=== PATIENT | female | born 1985 | race African-American/Black ===

== ENCOUNTER 2024-12-04 21:43 | Inpatient (IN) | payer MEDICAID ==
[~2024-12-04] VITALS: Ht 175.3 cm; Wt 149.7 kg
[~2024-12-04 21:43] MED LIST: CLON0.2T
[2024-12-04] MEDS ORDERED: IPRATROPIUM BROMIDE (0.02%) 0.5MG/2.5ML NEB HHN STA (22:07)
[2024-12-04] MEDS ORDERED: ALBUTEROL (0.083%) 2.5MG/3ML NEB HHN STA (22:07)
[2024-12-04] MEDS: FUROSEMIDE 40MG/4ML VIAL IV ONE (22:15)
[2024-12-04] MEDS: HYDRALAZINE 20MG/ML VIAL IV ONE (22:15)
[2024-12-04 23:46] LABS: BASOPHILS % 0.5 % (0.0-2.0); DIFFERENTIAL COMMENT 0; EOSINOPHILS % 4.6 % (0.0-5.0); HEMOGLOBIN. 7.9 g/dL (12.0-16.0); LYMPHOCYTES % 18.9 % (20.0-50.0); MEAN CORPUSCULAR HEMOGLOBIN 21.5 pg (28.0-32.0); MEAN CORPUSCULAR HGB CONC 30.4 g/dL (31.0-37.0); MEAN CORPUSCULAR VOLUME 70.8 fL (81.0-99.0); MEAN PLATELET VOLUME 8.4 fl (7.4-10.4); MONOCYTES % 7.4 % (2.0-8.0); NEUTROPHILS % 68.6 % (40.0-76.0); PLATELET 308 x1000/uL (130-400); RED BLOOD CELL COUNT 3.67 mill/uL (4.2-5.4); RED CELL DISTRIBUTION WIDTH 18.9 % (11.6-14.6); WHITE BLOOD COUNT 7.8 x1000/uL (4.5-11.0)
[2024-12-05 00:01] LABS: CHLORIDE 110 mEq/L (98-107); POTASSIUM 4.7 mEq/L (3.5-5.1); SODIUM 138 mEq/L (136-145)
[2024-12-05 00:02] LABS: CARBON DIOXIDE 20 mEq/L (21-32)
[2024-12-05 00:03] VITALS: PULSE 84; RESP 20; O2SAT 100
[2024-12-05 00:03] LABS: CALCIUM 8.9 mg/dL (8.7-10.4)
[2024-12-05] MEDS: IPRATROPIUM BROMIDE (0.02%) 0.5MG/2.5ML NEB HHN NR (00:03)
[2024-12-05] MEDS: ALBUTEROL (0.083%) 2.5MG/3ML NEB HHN NR (00:03)
[2024-12-05 00:08] LABS: CREATININE 3.7 mg/dL (0.6-1.0); GLUCOSE 94 mg/dL (70-105); UREA NITROGEN BLOOD 38 mg/dL (9-23)
[2024-12-05 00:10] LABS: TROPONIN I HIGH SENSITIVITY 38 ng/L (3.0-34)
[2024-12-05 00:10] LABS: BG BASE EXCESS -8.4 mmol/L (-2.0-3.0); BG CARBOXYHEMOGLOBIN 0.6 % (0.5-1.5); BG DEOXYHEMOGLOBIN 3.4 % (0.0-5.0); BG FRACTION INSPIRED OXYGEN 44; BG HCO3 ACT 16.7 mmol/L (21.0-28.0); BG METHEMOGLOBIN 0.3 % (0.5-1.5); BG OXYGEN SATURATION 96.6 % (94.0-98.0); BG OXYHEMOGLOBIN 95.7 % (94.0-98.0); BG PCO2 32.8 mmHg (32.0-45.0); BG PH 7.325 (7.350-7.450); BG PO2 90.2 mmHg (83.0-108.0); BG TOTAL HEMOGLOBIN 8.7 g/dL (12.0-16.0); BG VENT MODE NASAL CANNULA
[2024-12-05] MEDS: ACETAMINOPHEN 325MG TABLET PO ONE (00:42)
[2024-12-05] MEDS: MORPHINE SULFATE 4 MG/ML INJ (FOR IV/IM USE) IV ONE (00:49)
[2024-12-05] MEDS ORDERED: BUME2TAB34 PO (04:28)
[2024-12-05] MEDS ORDERED: CARV6.2548 PO (04:28)
[2024-12-05] MEDS ORDERED: CARV25TA47 PO (04:28)
[2024-12-05] MEDS ORDERED: LISI40TA13 PO (04:28)
[2024-12-05] MEDS ORDERED: HYDRALAZINE 20MG/ML VIAL IV PRN (04:30)
[2024-12-05] MEDS ORDERED: DIPHENHYDRAMINE 50MG/ML VIAL IV PRN (05:15)
[2024-12-05] MEDS ORDERED: ACETAMINOPHEN 325MG TABLET PO PRN ×2 (05:15)
[2024-12-05] MEDS ORDERED: GUAIFENESIN 200MG/10ML SUGAR FREE UDC PO PRN (05:15)
[2024-12-05] MEDS ORDERED: IPRATROPIUM/ALBUTEROL 0.5-3(2.5)MG/3ML NEB HHN PRN (05:15)
[2024-12-05] MEDS ORDERED: MAGNESIUM/ALUMINUM HYDROXIDE/SIMETHICONE 30ML UDC PO PRN (05:15)
[2024-12-05] MEDS ORDERED: DOCUSATE SODIUM 100MG CAPSULE PO PRN (05:15)
[2024-12-05 05:16] VITALS: BP 160/81; PULSE 83; RESP 20; TEMP 37.3
[2024-12-05] MEDS: AMLODIPINE 10MG TABLET PO SCH (06:08)
[2024-12-05 08:00] VITALS: BP 170/71; PULSE 83; RESP 18; TEMP 36.3; O2SAT 98
[2024-12-05] MEDS: CLONIDINE 0.2MG TABLET PO SCH (08:28)
[2024-12-05] MEDS: EMPAGLIFLOZIN 10MG TABLET PO SCH (08:29)
[2024-12-05] MEDS: FUROSEMIDE 40MG/4ML VIAL IV SCH (08:30)
[2024-12-05] MEDS: ENOXAPARIN 40MG/0.4ML SYR SUBCUT SCH (08:31)
[2024-12-05 10:06] LABS: INFLUENZA TYPE A Presumptive Negative (Pres. Neg.)
[2024-12-05 10:07] LABS: INFLUENZA TYPE B Presumptive Negative (Pres. Neg.); RESPIRATORY SYNCYTIAL VIRUS Not Detected (Not Detectd)
[2024-12-05 11:16] LABS: IRON 23 ug/dL (50-170)
[2024-12-05 11:17] LABS: HCG SCREEN NEGATIVE
[2024-12-05 11:19] LABS: CREATINE KINASE 667 IU/L (34-145); TOTAL IRON BINDING CAPACITY 362 ug/dl (250-425)
[2024-12-05 11:28] LABS: FERRITIN 31 ng/mL (10-291)
[2024-12-05 11:31] LABS: FOLIC ACID (FOLATE) SERUM 7.89 ng/mL (>5.38); VITAMIN B12 SERUM 435 pg/mL (211-911)
[2024-12-05 11:39] LABS: TROPONIN I HIGH SENSITIVITY 43 ng/L (3.0-34)
[2024-12-05 11:43] LABS: HEPATITIS B SURFACE ANTIGEN NEGATIVE (Negative)
[2024-12-05 12:00] VITALS: BP 130/71; PULSE 77; RESP 18; TEMP 36.5; O2SAT 96
[2024-12-05 12:04] LABS: HEPATITIS C AB NON REACTIVE (Neg) (Negative)
[2024-12-05 12:12] LABS: CLARITY URINE CLEAR (CLEAR); COLOR URINE YELLOW (YELLOW); GLUCOSE URINE NEGATIVE (NEGATIVE); KETONES URINE NEGATIVE (NEGATIVE); LEUKOCYTE ESTERASE URINE NEGATIVE (NEGATIVE); NITRITE URINE NEGATIVE (NEGATIVE); OCCULT BLOOD URINE 1+ (NEGATIVE); PH URINE 5.5 (4.5-8.0); PROTEIN URINE 2+ (NEGATIVE); SPECIFIC GRAVITY URINE 1.009 (1.005-1.030); UROBILINOGEN URINE 0.2 E.U./dL (0.2-1.0)
[2024-12-05 12:26] LABS: BACTERIA URINE 1+; RBC URINE 0-2 /hpf (0-2); SQUAMOUS EPITHELIAL CELL URINE 1+ /lpf (RARE/1+); WBC URINE 0-2 /hpf (0-2); YEAST URINE NONE SEEN
[2024-12-05 12:36] LABS: *AMPHETAMINES SCREEN URINE NEGATIVE (NEGATIVE); *BENZODIAZEPINES SCREEN URINE NEGATIVE (NEGATIVE)
[2024-12-05 12:37] LABS: *BARBITURATES SCREEN URINE NEGATIVE (NEGATIVE); *COCAINE SCREEN URINE NEGATIVE (NEGATIVE); CANNABINOID URINE SCREEN NEGATIVE (NEGATIVE); ECSTASY MDMA SCREEN URINE NEGATIVE (NEGATIVE); METHADONE URINE SCREEN NEGATIVE (NEGATIVE); OPIATES URINE SCREEN NEGATIVE (NEGATIVE); PHENCYCLIDINE URINE SCREEN NEGATIVE (NEGATIVE)
[2024-12-05 16:00] VITALS: BP 132/69; PULSE 78; RESP 18; TEMP 36.6; O2SAT 99
[2024-12-05 16:16] VITALS: BP 160/58; PULSE 67; RESP 18; TEMP 36.4; O2SAT 98
[2024-12-06] MEDS ORDERED: LOSARTAN 25 MG TABLET PO SCH (09:00)
[2024-12-06] MEDS ORDERED: AMLODIPINE 10MG TABLET PO SCH (09:00)
== END 2024-12-05 19:10 | disposition left against medical advice (07) | DRG 194 ==
LOC: ER 21:43 → 8WST 12-05 01:33 → EDBEDREQTM 12-05 01:38 → EDBEDREQ 12-05 01:38
PROVIDERS: ADMIT Hospitalist; ATTEND Hospitalist
DX: I13.0 Hypertensive heart and chronic kidney disease with heart failure and stage 1 through stage 4 chronic kidney disease, or unspecified chronic kidney disease (principal); I21.A1 Myocardial infarction type 2; D50.9 Iron deficiency anemia, unspecified; E66.01 Morbid (severe) obesity due to excess calories; F15.10 Other stimulant abuse, uncomplicated; F14.10 Cocaine abuse, uncomplicated; I16.1 Hypertensive emergency; G43.909 Migraine, unspecified, not intractable, without status migrainosus; Z20.822 Contact with and (suspected) exposure to COVID-19; Z53.29 Procedure and treatment not carried out because of patient's decision for other reasons; N18.9 Chronic kidney disease, unspecified; Z79.899 Other long term (current) drug therapy; Z91.148 Patient's other noncompliance with medication regimen for other reason; Z68.42 Body mass index [BMI] 45.0-49.9, adult; I50.43 Acute on chronic combined systolic (congestive) and diastolic (congestive) heart failure
CPT/HCPCS: 36415; 36600; 71045; 80048; 80305; 81003; 82375; 82550; 82607; 82728; 82746; 82805; 83540; 83550; 83605; 83880; 84484; 84703; 85025; 86705; 87340; 87420; 87426; 87804; 93005; 93970; 94640; 99291; J0360; J1650; J1940; J2270